=== PATIENT | male | born 1995 | race Two or more races ===

== ENCOUNTER 2019-12-24 21:00 | Emergency (ER) | payer OTHER ==
[~2019-12-24] VITALS: Ht 172.7 cm; Wt 85.7 kg
[2019-12-24 21:20] VITALS: BP 116/81
[2019-12-24] MEDS ORDERED: ALBUTEROL SULF 2.5 MG/0.5ML(0.5%) NEB SOLN NEB ONE ×2 (21:30)
[2019-12-24] MEDS ORDERED: IPRATROPIUM BROM 0.5 MG/2.5ML INH SOL NEB ONE ×2 (21:30)
[2019-12-24] MEDS ORDERED: methylPREDNISolone SOD SUCC 125 MG/2 ML VL IM ONE (21:30)
== END 2019-12-24 22:49 | disposition home or self-care (01) ==
LOC: ER 21:00
DX: J45.901 Unspecified asthma with (acute) exacerbation (principal); J31.0 Chronic rhinitis
CPT/HCPCS: 71045; 94640; 96372; 99283; J2930; J7644

== ENCOUNTER 2021-03-21 07:56 | Emergency (ER) | payer SELFPAY ==
[~2021-03-21] VITALS: Ht 172.7 cm; Wt 90.7 kg
[2021-03-21 11:39] VITALS: BP 121/89
== END 2021-03-21 11:39 ==
LOC: ER 07:56
DX: J45.901 Unspecified asthma with (acute) exacerbation (principal); F19.10 Other psychoactive substance abuse, uncomplicated